=== PATIENT | female | born 1995 | race Caucasian/White ===

== ENCOUNTER 2017-10-09 23:15 | Emergency (ER) | payer MEDICAID ==
[~2017-10-09] VITALS: Ht 172.7 cm; Wt 65.8 kg
[2017-10-09 23:34] LABS: ABSOLUTE BASOPHILS 0.1 thou/uL (0.0-0.2); ABSOLUTE EOSINOPHILS 0.2 thou/uL (0.0-0.7); ABSOLUTE LYMPHOCYTES 2.8 thou/uL (0.8-5.3); ABSOLUTE MONOCYTES 0.5 thou/uL (0.0-1.2); ABSOLUTE NEUTROPHILS 4.3 thou/uL (1.6-8.1); BASOPHILS 0.8 %; EOSINOPHILS 2.4 %; HEMATOCRIT 37.6 % (37.0-47.0); HEMOGLOBIN 12.8 gm/dL (12.0-15.0); LYMPHOCYTES 35.7 %; MCH 31.4 pg (26.0-34.0); MCHC 34.1 g/dL (28.0-37.0); MCV 92.2 fL (80.0-100.0); NUCLEATED RBCS 0 /100WBC; PLATELET COUNT* 347 thou/uL (150-400); POLYS 55.1 %; RBC 4.08 mil/uL (4.20-5.00); RDW-CV 12.2 % (10.5-14.5); WBC 7.7 thou/uL (4.0-11.0)
[2017-10-09 23:43] LABS: CALCIUM 8.5 mg/dL (8.5-10.1); CREATININE 0.8 mg/dL (0.6-1.3)
[2017-10-09 23:48] LABS: ALBUMIN 3.2 g/dL (3.4-5.0); TOTAL BILIRUBIN 0.1 mg/dL (<0.1-1.0); TOTAL PROTEIN 6.9 g/dL (6.4-8.2)
[2017-10-09 23:55] LABS: URINE BILIRUBIN NEGATIVE (Negative); URINE BLOOD TRACE (Negative); URINE COLOR YELLOW; URINE GLUCOSE-RANDOM NEGATIVE (Negative); URINE KETONES NEGATIVE (Negative); URINE LEUKOCYTES-REFLEX NEGATIVE (Negative); URINE NITRITE-REFLEX NEGATIVE (Negative); URINE PROTEIN NEGATIVE (Negative); URINE SPECIFIC GRAVITY 1.015 (1.005-1.030); URINE UROBILINOGEN 0.2 E.U./dl (0.2-1.0)
[2017-10-09 23:56] LABS: URINE CLARITY CLEAR
[2017-10-10] LABS: ACETAMINOPHEN < 2 ug/mL (10-30); ALCOHOL < 10 mg/dL (<10); SALICYLATE < 2.8 mg/dL (2.8-20.0)
[2017-10-10 00:02] LABS: AMP/METHAMP Negative (Negative); BARBITURATES Negative (Negative); BENZODIAZEPINES Negative (Negative); COCAINE Negative (Negative); METHADONE Negative (Negative); OPIATES Negative (Negative); PCP Negative (Negative); THC Negative (Negative)
[2017-10-10] MEDS ORDERED: MONONESSA1 EACH PO (00:20)
[2017-10-10] MEDS ORDERED: LEXAPRO 10 MG T10 M1 PO (00:21)
[2017-10-10] MEDS ORDERED: ATIVAN0.5 MG PO (00:21)
[2017-10-10] MEDS ORDERED: TRAZODONE HCL100 MG PO (00:22)
[2017-10-10] MEDS ORDERED: QUETIAPINE FUM100 MG PO (00:24)
[2017-10-10] MEDS ORDERED: GEODON 80 MG CA80 MG PO (00:27)
[2017-10-10] MEDS ORDERED: VALIUM5 MG PO (00:29)
[2017-10-10] MEDS ORDERED: BENZTROPINE MES1 MG PO (00:29)
[2017-10-10 13:09] VITALS: BP 106/66
== END 2017-10-10 13:11 | disposition short-term general hospital (02) ==
LOC: M.ERS 23:15
PROVIDERS: Emergency Medicine Emergency Medical Services
DX: F30.9 Manic episode, unspecified (principal); F29 Unspecified psychosis not due to a substance or known physiological condition; J45.909 Unspecified asthma, uncomplicated